=== PATIENT | female | born 1990 | race African-American/Black ===

== ENCOUNTER 2025-01-26 03:05 | Emergency (ER) | payer OTHER ==
[~2025-01-26] VITALS: Ht 160 cm; Wt 50.0 kg
[2025-01-26 04:04] LABS: BASO # 0.0 10^3/uL (0.0-0.2); BASO % 0.3 % (0.0-1.0); EOS # 0.0 10^3/uL (0.0-0.5); EOS % 0.0 % (0.0-3.0); LYMPH # 1.1 10^3/uL (1.5-5.0); LYMPH % 8.0 % (24.0-44.0); MONO # 0.2 10^3/uL (0.0-0.8); MONO % 1.5 % (2.0-8.0); NEUTROPHILS # 11.9 10^3/uL (1.5-8.5); NEUTROPHILS % 90.0 % (36.0-66.0); PLATELET COUNT, AUTOMATED 289 10^3/uL (150-450)
[2025-01-26] MEDS: ONDANSETRON 4MG 2ML VIAL IV ONE (04:46)
[2025-01-26] MEDS: KETOROLAC 30 MG/ML 1 ML VIAL IV ONE (04:46)
[2025-01-26 05:41] LABS: ALT/SGPT 18 U/L (7.0-40); AST/SGOT 22 U/L (<34); CALCIUM LEVEL 9.2 MG/DL (8.5-10.1); CARBON DIOXIDE LEVEL 23 MMOL/L (20-31); CHLORIDE LEVEL 105 MMOL/L (98-107); CREATININE FOR GFR 0.57 MG/DL (0.55-1.30); GLOMERULAR FILTRATION RATE > 90.0 (>60); POTASSIUM SERUM 4.0 MMOL/L (3.5-5.1); SODIUM LEVEL 140 MMOL/L (136-145)
[2025-01-26 05:53] LABS: HCG, SERUM QUALITATIVE NEGATIVE (NEGATIVE)
[2025-01-26] MEDS ORDERED: ISOVUE-370 76% 100 ML VIAL As Ordered ONE (05:59)
[2025-01-26] MEDS: NS (Normal Saline) 0.9% 1,000 ML IV ONE (06:05)
[2025-01-26 06:29] LABS: KETONE, URINE AUTO RFX 1+ mg/dL (NEGATIVE); LEUKOCYTE ESTERASE UR AUTO RFX NEGATIVE (NEGATIVE); MUCUS, URINE RFX LARGE (NEGATIVE); NITRITE, URINE AUTO RFX NEGATIVE (NEGATIVE); RBC, URINE AUTO RFX 0 /HPF (0-3); SQUAM EPITHELIAL CELL UR AURFX 0 /HPF (0-6); WBC, URINE AUTO RFX 1 /HPF (0-3)
[2025-01-26 06:30] VITALS: TEMP 98.2
[2025-01-26] MEDS: PIPERACILLIN/TAZOBACTAM SOD 4.5 GM in DEXTROSE 5% (D5W) ADV/MINI-BAG 50 ML IV ONE (06:32)
[2025-01-26] MEDS: MORPHINE 2 MG/ML 1 ML VIAL IV ONE (06:35)
[2025-01-26] MEDS ORDERED: AMLO1TAB24 PO (08:48)
[2025-01-26] MEDS ORDERED: HOME MED LIST COMPLETE! XX SCH (08:50)
[2025-01-26] MEDS ORDERED: HYDR-3713 PO (09:08)
[2025-01-26 10:45] VITALS: BP 118/77; O2SAT 99
== END 2025-01-26 11:52 | disposition home or self-care (01) ==
LOC: M ED 03:05
DX: N83.291 Other ovarian cyst, right side (principal); Z88.1 Allergy status to other antibiotic agents; Z79.1 Long term (current) use of non-steroidal anti-inflammatories (NSAID); Z79.899 Other long term (current) drug therapy
CPT/HCPCS: 74177; 76830; 76856; 80048; 80076; 81001; 83605; 83690; 84703; 85025; 87040; 93041; 93976; 96365; 96366; 96375; 99285; J1885; J2405; J2543; Q9967